=== PATIENT | male | born 1940 | race Caucasian/White ===

== ENCOUNTER 2022-11-29 07:37 | Outpatient (CLI) | payer BC ==
[2022-11-29] MEDS ORDERED: Lidocaine 1% PF 5 ML VIAL ONE (08:10)
[2022-11-29] MEDS ORDERED: Sodium Bicarbonate 2.5 MEQ/5 ML VIAL ONE (08:11)
[2022-11-29] MEDS ORDERED: Iopamidol-M 300 61% 15 ML VIAL ONE (15:46)
[2022-11-29 16:08] VITALS: BP 166/79; TEMP 97.8
== END 2022-11-29 10:00 | disposition home or self-care (01) ==
LOC: CSHRAD 07:37
PROVIDERS: ATTEND Neurological Surgery
DX: M62.89 Other specified disorders of muscle (principal); M47.812 Spondylosis without myelopathy or radiculopathy, cervical region; M48.02 Spinal stenosis, cervical region; M47.814 Spondylosis without myelopathy or radiculopathy, thoracic region; M48.04 Spinal stenosis, thoracic region; M48.54XA Collapsed vertebra, not elsewhere classified, thoracic region, initial encounter for fracture; Z98.1 Arthrodesis status; M48.56XG Collapsed vertebra, not elsewhere classified, lumbar region, subsequent encounter for fracture with delayed healing
CPT/HCPCS: 62305; 72126; 72129; 72132